=== PATIENT | female | born 1955 | race African-American/Black ===

== ENCOUNTER 2022-08-16 11:23 | Emergency (ER) | payer OTHER ==
[~2022-08-16] VITALS: Ht 165.1 cm; Wt 73.0 kg
[2022-08-16 11:34] VITALS: BP 161/100
[2022-08-16] MEDS ORDERED: AZIT250T12 PO (14:39)
[2022-08-16] MEDS ORDERED: ACETAMINOPHEN 325MG TABLET PO ONE (15:45)
== END 2022-08-16 15:49 | disposition home or self-care (01) ==
LOC: ER 13:30
DX: J06.9 Acute upper respiratory infection, unspecified (principal); I10 Essential (primary) hypertension; Z88.0 Allergy status to penicillin; Z98.890 Other specified postprocedural states
CPT/HCPCS: 71045; 99283